=== PATIENT | male | born 1985 | race African-American/Black ===

== ENCOUNTER 2019-01-20 07:49 | Inpatient (IN) | payer MEDICAID | END 2019-01-31 14:35 | disposition home or self-care (01) | LOC: TELE-CENTR 01-21 08:19 → ER 07:49 → CENTRAL 01-29 10:52 → OVERFLOW 07:50 | DX: A41.9 Sepsis, unspecified organism (principal); N17.0 Acute kidney failure with tubular necrosis; E10.10 Type 1 diabetes mellitus with ketoacidosis without coma; K85.90 Acute pancreatitis without necrosis or infection, unspecified; T68.XXXA Hypothermia, initial encounter; E44.0 Moderate protein-calorie malnutrition; N18.3 Chronic kidney disease, stage 3 (moderate); D68.9 Coagulation defect, unspecified; E10.22 Type 1 diabetes mellitus with diabetic chronic kidney disease; E10.649 Type 1 diabetes mellitus with hypoglycemia without coma; E88.81 Metabolic syndrome and other insulin resistance; E86.0 Dehydration; N39.0 Urinary tract infection, site not specified; E03.9 Hypothyroidism, unspecified; E78.5 Hyperlipidemia, unspecified; E83.39 Other disorders of phosphorus metabolism; F10.10 Alcohol abuse, uncomplicated; I42.0 Dilated cardiomyopathy; I50.22 Chronic systolic (congestive) heart failure; K76.89 Other specified diseases of liver ==